=== PATIENT | male | born 1980 | race Caucasian/White ===

== ENCOUNTER 2017-01-06 19:12 | Emergency (ER) | payer SELFPAY ==
[~2017-01-06] VITALS: Ht 182.9 cm; Wt 77.0 kg
[~2017-01-06 19:12] MED LIST: BACT800T5 PO; DICL75 PO; HYDR-3533 PO; MEDR4PAK3 PO; PRED20 PO; TRAM50 PO
[2017-01-06 19:22] VITALS: BP 137/84; PULSE 100; RESP 18; TEMP 98.5; O2SAT 99
[2017-01-06] MEDS ORDERED: SODIUM CHLOR 0.9% 1000 ML INJ 1,000 ML IV SCH ×2 (19:40→19:45)
[2017-01-06] MEDS ORDERED: PANTOPRAZOLE SODIUM 40 MG VIAL IVP ONE (19:45)
[2017-01-06] MEDS ORDERED: LIDOCAINE VISCOUS 2% SOLN 15 ML UDC PO ONE (19:45)
[2017-01-06] MEDS ORDERED: ALUMINUM/MAGNESIUM/SIMETH 30 ML CUP PO ONE (19:45)
[2017-01-06] MEDS ORDERED: MORPHINE SULFATE 4 MG/ML INJ IV PUSH ONE (19:45)
[2017-01-06] MEDS ORDERED: ONDANSETRON HCL 4 MG/2 ML VIAL IVP ONE (19:45)
[2017-01-06] MEDS ORDERED: SODIUM CHLORIDE 0.9% FLUSH 10 ML FLUSH IV FLUSH PRN (19:45)
[2017-01-06] MEDS ORDERED: FAMOTIDINE 20 MG/2 ML VIAL IV PUSH ONE (19:45)
--- NOTE | 2017-01-06 19:45 | PD ---
HPI Chief Complaint: abdominal pain, vomiting, diarrhea Time Seen by Provider: 19:32 Travel History International Travel<30 days: No Contact w/Intl Traveler<30days: No Traveled to known affect area: No History of Present Illness HPI The patient is a 36-year-old male who complains of abdominal pain for 5 days. He initially had some nausea and vomiting on day one and diarrhea days 1 and 2 but these have subsided. He denies any fever. He is not nauseated at this time. His only major medical problem is hepatitis C. He has no doctor and no insurance. His pain as a 9/10 and feels like "nails" in his stomach. She denies vomiting any blood. He notices that it is worse when he lies down flat. He denies any previous abdominal surgeries and still has his appendix and gallbladder. The patient has a history of IV drug abuse 15 years ago. PFSH Past Medical History Diminished Hearing: No Musculoskeletal: Yes (fx c2 and l 3,4 from [facility] 2008) Social History Alcohol Use: No Tobacco Use: Yes (1/2 PPD) Substance Use: No Allergies-Medications (Allergen,Severity, Reaction): Coded Allergies: Amoxicillin (Unverified Allergy, Severe, Hives, 05/26/15) Penicillin (Unverified Allergy, Severe, Hives, 05/26/15) Reported Meds & Prescriptions Reported Meds & Active Scripts Active Zantac (Ranitidine HCl) 150 Mg Tab 150 Mg PO BID Prilosec (Omeprazole) 20 Mg Cap 20 Mg PO DAILY Lortab 5 mg/325 mg (Hydrocodone/Acetaminophen 5 mg/325 mg) 1 Tab 1-2 Tab PO Q6H PRN Deltasone (Prednisone) 20 Mg Tab 40 Mg PO DAILY Medrol Dosepak (Methylprednisolone) 4 Mg Armando 4 Mg PO DIRECTED TAKE DIRECTED Diclofenac Sodium Dr (Diclofenac Sod) 75 Mg Tab 75 Mg PO BID PRN Bactrim DS (Sulfamethoxazole-Trimethoprim DS) 1 Tab Tab 1 Tab PO BID 7 Days Ultram (Tramadol HCl) 50 Mg Tab 1 Tab PO Q6H PRN FOR PAIN Review of Systems Except as stated in HPI: all other systems reviewed are Neg Physical Exam Narrative GENERAL: The patient is alert, oriented 3 in moderate distress with his midline epigastric pain. His vital signs show heart rate 100 but otherwise normal. He does appear slightly dehydrated. SKIN: Focused skin assessment warm/dry. HEAD: Atraumatic. Normocephalic. EYES: Pupils equal and round. No scleral icterus. No injection or drainage. ENT: No nasal bleeding or discharge. Mucous membranes pink and moist. NECK: Trachea midline. No JVD. CARDIOVASCULAR: Regular rate and rhythm. No murmur appreciated. RESPIRATORY: No accessory muscle use. Clear to auscultation. Breath sounds equal bilaterally. GASTROINTESTINAL: Abdomen soft, with tenderness to direct palpation in the midline epigastrium, nondistended. Hepatic and splenic margins not palpable. No guarding or rebound is present. MUSCULOSKELETAL: No obvious deformities. No clubbing. No cyanosis. No edema. NEUROLOGICAL: Awake and alert. No obvious cranial nerve deficits. Motor grossly within normal limits. Normal speech. PSYCHIATRIC: Appropriate mood and affect; insight and judgment normal. Data Data Last Documented VS Vital Signs Date Time Temp Pulse Resp B/P Pulse Ox O2 Delivery O2 Flow Rate FiO2 01/06/17 21:36 88 16 155/85 99 Room Air 01/06/17 19:22 98.5 Orders Complete Blood Count With Diff (01/06/17 19:40) Comprehensive Metabolic Panel (01/06/17 19:40) Lipase (01/06/17 19:40) Urinalysis - C+S If Indicated (01/06/17 19:40) Iv Access Insert/Monitor (01/06/17 19:40) Ecg Monitoring (01/06/17 19:40) Oximetry (01/06/17 19:40) Morphine Inj (Morphine Inj) (01/06/17 19:45) Ondansetron Inj (Zofran Inj) (01/06/17 19:45) Pantoprazole Inj (Protonix Inj) (01/06/17 19:45) Sodium Chlor 0.9% 1000 Ml Inj (Ns 1000 M (01/06/17 19:40) Sodium Chloride 0.9% Flush (Ns Flush) (01/06/17 19:45) Famotidine Inj (Pepcid Inj) (01/06/17 19:45) Al-Mag Hy-Si 40-40-4 Mg/Ml Liq (Mag-Al P (01/06/17 19:45) Lidocaine 2% Viscous (Xylocaine 2% Visco (01/06/17 19:45) Sodium Chlor 0.9% 1000 Ml Inj (Ns 1000 M (01/06/17 19:45) Labs Laboratory Tests Test 01/06/17 01/06/17 19:57 21:00 Urine Color YELLOW Urine Turbidity SLIGHT Urine pH 5.5 Urine Specific [place] 1.029 Urine Protein NEG mg/dL Urine Glucose (UA) NEG mg/dL Urine Ketones NEG mg/dL Urine Occult Blood NEG Urine Nitrite NEG Urine Bilirubin NEG Urine Leukocyte Esterase NEG Urine Squamous Epithelial 0-5 /hpf Cells Urine Calcium Oxalate Crystals MOD /hpf Urine Mucus MANY /lpf Microscopic Urinalysis Comment CULT NOT INDICATED White Blood Count 8.7 TH/MM3 Red Blood Count 4.31 MIL/MM3 Hemoglobin 12.8 GM/DL Hematocrit 38.0 % Mean Corpuscular Volume 88.1 FL Mean Corpuscular Hemoglobin 29.6 PG Mean Corpuscular Hemoglobin 33.6 % Concent Red Cell Distribution Width 13.0 % Platelet Count 251 TH/MM3 Mean Platelet Volume 7.9 FL Neutrophils (%) (Auto) 51.8 % Lymphocytes (%) (Auto) 31.6 % Monocytes (%) (Auto) 12.4 % Eosinophils (%) (Auto) 3.1 % Basophils (%) (Auto) 1.1 % Neutrophils # (Auto) 4.5 TH/MM3 Lymphocytes # (Auto) 2.7 TH/MM3 Monocytes # (Auto) 1.1 TH/MM3 Eosinophils # (Auto) 0.3 TH/MM3 Basophils # (Auto) 0.1 TH/MM3 CBC Comment DIFF FINAL Differential Comment Sodium Level 144 MEQ/L Potassium Level 4.2 MEQ/L Chloride Level 108 MEQ/L Carbon Dioxide Level 30.5 MEQ/L Anion Gap 6 MEQ/L Blood Urea Nitrogen 12 MG/DL Creatinine 0.79 MG/DL Estimat Glomerular Filtration 112 ML/MIN Rate Random Glucose 88 MG/DL Calcium Level 8.7 MG/DL Total Bilirubin 0.2 MG/DL Aspartate Amino Transf 14 U/L (AST/SGOT) Alanine Aminotransferase 32 U/L (ALT/SGPT) Alkaline Phosphatase 95 U/L Total Protein 6.8 GM/DL Albumin 3.1 GM/DL Lipase 142 U/L [facility] Medical Decision Making Medical Screen Exam Complete: Yes Emergency Medical Condition: Yes Medical Record Reviewed: Yes Interpretation(s) The CBC shows a hemoglobin of 12.8 and hematocrit of 38.0. It is otherwise unremarkable. The complete metabolic profile shows an albumin of 3.1 but is otherwise normal. The lipase is normal. Urinalysis shows specific gravity 1.029 with moderate calcium oxalate crystals but is otherwise normal and culture is not indicated. Differential Diagnosis Gastritis, pancreatitis, gastroenteritis, ulcer, electrolyte disorder, anemia, dehydration, hepatitis C Narrative Course It is now 10:11 PM and the patient feels better. He says he wants some pain medicines just to help him sleep at night. He does not want any sleeping pill. He knows to keep his have elevated. He will be given 10 Lortab 5 to take at home just at night. Also get prescriptions for Prilosec and Zantac. Impression: Gastroenteritis. The patient is also mildly dehydrated. The dehydration as demonstrated by the high urine specific gravity and by the clinical appearance of the patient. The patient's liver enzymes are completely normal Procedures Procedure Narrative The nurses could not get an IV started, the patient does have a history of IV drug abuse 15 years ago. I started an IV in the external jugular on the left. Diagnosis Primary Impression: Gastroenteritis Additional Impression: Mild dehydration Additional Instructions: As we discussed, elevate the head of your bed so that the acid stays in the stomach does not go up to the esophagus. The Zantac is twice daily and the Prilosec is once daily. Both of these cut down on her stomach acid. The Lortab 5 is to be taken only before bed. Med/Other Pt SpecificInfo: Prescription(s) given Scripts Hydrocodone-Acetaminophen (Lortab)5-325 Mg Tab1-2 Tab PO Q6H PRN (PAIN) #10 TAB Ref 0 Prov:Ander Anderson MD 01/06/17 Ranitidine (Zantac)150 Mg Api670 Mg PO BID #60 TAB Ref 0 Prov:Ander Anderson MD 01/06/17 Omeprazole (Prilosec)20 Mg Cap20 Mg PO DAILY #30 CAP Ref 0 Prov:Ander Anderson MD 01/06/17 Disposition: 01 DISCHARGE HOME Condition: Stable Ander Anderson MD January 06, 2017 19:45
[2017-01-06 20:15] LABS: BLOOD, URINE NEG (NEG); GLUCOSE,URINE NEG (NEG); KETONE, URINE NEG (NEG); NITRITE,URINE NEG (NEG); PH, URINE 5.5 (5.0-8.5)
[2017-01-06 20:28] LABS: URINE COLOR YELLOW (YELLW/STRAW)
[2017-01-06 20:29] LABS: CALCIUM OXALATE CRYSTALS,URINE MOD /hpf; MUCUS URINE MANY /lpf (OCC)
[2017-01-06 20:30] LABS: SQUAMOUS EPITHELIAL CELL URINE 0-5 /hpf (0-5)
[2017-01-06 20:33] LABS: COMMENT (UR) CULT NOT INDICATED; CULTURE IF INDICATED CULT NOT INDICATED
[2017-01-06 20:35] VITALS: BP 123/84; PULSE 86; RESP 16; O2SAT 99
[2017-01-06 20:45] VITALS: PULSE 84; RESP 16; O2SAT 99
[2017-01-06 21:12] LABS: AUTOMATED NEUTROPHIL # 4.5 TH/MM3 (1.8-7.7); BASOPHIL # 0.1 TH/MM3 (0-0.2); BASOPHIL % 1.1 % (0.0-2.0); EOSINOPHIL # 0.3 TH/MM3 (0-0.4); EOSINOPHIL % 3.1 % (0.0-4.0); HEMO FLAGS DIFF FINAL; LYMPH % 31.6 % (9.0-44.0); LYMPHOCYTE # 2.7 TH/MM3 (1.0-4.8); MEAN CELL VOLUME 88.1 FL (80.0-100.0); MEAN CORPUSCULAR HEMOGLOBIN 29.6 PG (27.0-34.0); MEAN CORPUSCULAR HGB CONC 33.6 % (32.0-36.0); MONO % 12.4 % (0.0-8.0); NEUT % 51.8 % (16.0-70.0); PLATELET COUNT 251 TH/MM3 (150-450); RED BLOOD COUNT 4.31 MIL/MM3 (4.50-5.90); WHITE BLOOD COUNT 8.7 TH/MM3 (4.0-11.0)
[2017-01-06 21:20] LABS: CHLORIDE 108 MEQ/L (98-107); POTASSIUM 4.2 MEQ/L (3.5-5.1); SODIUM (NA) 144 MEQ/L (136-145)
[2017-01-06 21:24] LABS: ANION GAP 6 MEQ/L (5-15); BICARBONATE 30.5 MEQ/L (21.0-32.0); BLOOD UREA NITROGEN 12 MG/DL (7-18)
[2017-01-06 21:27] LABS: ALT (GPT) 32 U/L (12-78); AST (GOT) 14 U/L (15-37); GLOMERULAR FILTRATION RATE 112 ML/MIN (>89)
[2017-01-06 21:28] LABS: TOTAL BILIRUBIN ADULT 0.2 MG/DL (0.2-1.0)
[2017-01-06 21:29] LABS: ALKALINE PHOSPHATASE 95 U/L (45-117)
[2017-01-06 21:36] VITALS: BP 155/85; PULSE 88; RESP 16; O2SAT 99
[2017-01-06] MEDS ORDERED: ZANT150T2 PO (21:41)
[2017-01-06] MEDS ORDERED: PRIL20CA9 PO (21:41)
[2017-01-06] MEDS ORDERED: HYDR-3533 PO (22:16)
[2017-01-06] MEDS ORDERED: OXYC1CAP PO (22:35)
[2017-01-06 23:08] VITALS: BP 151/77; PULSE 68; RESP 16; O2SAT 99
[2017-01-07] MEDS ORDERED: OXYC-392 PO (13:23)
--- NOTE | 2017-01-07 13:23 | PD ---
Data Data Last Documented VS Vital Signs Date Time Temp Pulse Resp B/P Pulse Ox O2 Delivery O2 Flow Rate FiO2 01/06/17 23:08 68 16 151/77 99 Room Air 01/06/17 19:22 98.5 Orders Complete Blood Count With Diff (01/06/17 19:40) Comprehensive Metabolic Panel (01/06/17 19:40) Lipase (01/06/17 19:40) Urinalysis - C+S If Indicated (01/06/17 19:40) Iv Access Insert/Monitor (01/06/17 19:40) Ecg Monitoring (01/06/17 19:40) Oximetry (01/06/17 19:40) Morphine Inj (Morphine Inj) (01/06/17 19:45) Ondansetron Inj (Zofran Inj) (01/06/17 19:45) Pantoprazole Inj (Protonix Inj) (01/06/17 19:45) Sodium Chlor 0.9% 1000 Ml Inj (Ns 1000 M (01/06/17 19:40) Sodium Chloride 0.9% Flush (Ns Flush) (01/06/17 19:45) Famotidine Inj (Pepcid Inj) (01/06/17 19:45) Al-Mag Hy-Si 40-40-4 Mg/Ml Liq (Mag-Al P (01/06/17 19:45) Lidocaine 2% Viscous (Xylocaine 2% Visco (01/06/17 19:45) Sodium Chlor 0.9% 1000 Ml Inj (Ns 1000 M (01/06/17 19:45) Labs Laboratory Tests Test 01/06/17 01/06/17 19:57 21:00 Urine Color YELLOW Urine Turbidity SLIGHT Urine pH 5.5 Urine Specific [place] 1.029 Urine Protein NEG mg/dL Urine Glucose (UA) NEG mg/dL Urine Ketones NEG mg/dL Urine Occult Blood NEG Urine Nitrite NEG Urine Bilirubin NEG Urine Leukocyte Esterase NEG Urine Squamous Epithelial 0-5 /hpf Cells Urine Calcium Oxalate Crystals MOD /hpf Urine Mucus MANY /lpf Microscopic Urinalysis Comment CULT NOT INDICATED White Blood Count 8.7 TH/MM3 Red Blood Count 4.31 MIL/MM3 Hemoglobin 12.8 GM/DL Hematocrit 38.0 % Mean Corpuscular Volume 88.1 FL Mean Corpuscular Hemoglobin 29.6 PG Mean Corpuscular Hemoglobin 33.6 % Concent Red Cell Distribution Width 13.0 % Platelet Count 251 TH/MM3 Mean Platelet Volume 7.9 FL Neutrophils (%) (Auto) 51.8 % Lymphocytes (%) (Auto) 31.6 % Monocytes (%) (Auto) 12.4 % Eosinophils (%) (Auto) 3.1 % Basophils (%) (Auto) 1.1 % Neutrophils # (Auto) 4.5 TH/MM3 Lymphocytes # (Auto) 2.7 TH/MM3 Monocytes # (Auto) 1.1 TH/MM3 Eosinophils # (Auto) 0.3 TH/MM3 Basophils # (Auto) 0.1 TH/MM3 CBC Comment DIFF FINAL Differential Comment Sodium Level 144 MEQ/L Potassium Level 4.2 MEQ/L Chloride Level 108 MEQ/L Carbon Dioxide Level 30.5 MEQ/L Anion Gap 6 MEQ/L Blood Urea Nitrogen 12 MG/DL Creatinine 0.79 MG/DL Estimat Glomerular Filtration 112 ML/MIN Rate Random Glucose 88 MG/DL Calcium Level 8.7 MG/DL Total Bilirubin 0.2 MG/DL Aspartate Amino Transf 14 U/L (AST/SGOT) Alanine Aminotransferase 32 U/L (ALT/SGPT) Alkaline Phosphatase 95 U/L Total Protein 6.8 GM/DL Albumin 3.1 GM/DL Lipase 142 U/L MDM Supervised Visit with SHARI: No Narrative Course Patient return to the emergency department because the pharmacy would not fill his oxycodone capsules. He requested a change to tablets. I took his prescription from home and it was disposed of and he was reissued an new prescription. I discussed this with Ania the charge nurse. Diagnosis Primary Impression: Gastroenteritis Additional Impression: Mild dehydration Referrals: Primary Care Physician call for appointment Patient Instructions: General Instructions, Dehydration (ED), Gastroenteritis ( ED) Departure Forms: Tests/Procedures Additional Instruction: As we discussed, elevate the head of your bed so that the acid stays in the stomach does not go up to the esophagus. The Zantac is twice daily and the Prilosec is once daily. Both of these cut down on her stomach acid. The Lortab 5 is to be taken only before bed. Scripts Oxycodone 5 Mg Cap5 Mg PO Q4H PRN (PAIN) #10 CAP Ref 0 Prov:Ander Anderson MD 01/06/17 Hydrocodone-Acetaminophen (Lortab)5-325 Mg Tab1-2 Tab PO Q6H PRN (PAIN) #10 TAB Ref 0 Prov:Ander Anderson MD 01/06/17 Ranitidine (Zantac)150 Mg Otr780 Mg PO BID #60 TAB Ref 0 Prov:Ander Anderson MD 01/06/17 Omeprazole (Prilosec)20 Mg Cap20 Mg PO DAILY #30 CAP Ref 0 Prov:Ander Anderson MD 01/06/17 Disposition: 01 DISCHARGE HOME Condition: Stable Isabella Anderson MD January 07, 2017 13:23
== END 2017-01-06 23:25 | disposition home or self-care (01) ==
LOC: PHED 19:12
DX: K52.9 Noninfective gastroenteritis and colitis, unspecified (principal); E86.0 Dehydration; F17.210 Nicotine dependence, cigarettes, uncomplicated; B19.20 Unspecified viral hepatitis C without hepatic coma
CPT/HCPCS: 80053; 81001; 83690; 85025; 96361; 96374; 96375; 99284; C9113; J2270; J2405; J7030